=== PATIENT | male | born 1960 | race Caucasian/White ===

== ENCOUNTER 2018-12-16 01:11 | Emergency (ER) | payer OTHER ==
[~2018-12-16] VITALS: Ht 170.2 cm; Wt 97.5 kg
[2018-12-16 01:53] LABS: ABSOLUTE NEUTROPHILS 5.3 thou/uL (1.4-8.2); BASOPHILS 0.8 % (0.0-2.0); EOSINOPHILS 4.8 % (0.0-3.0); HEMATOCRIT 37.4 % (42.0-52.0); HEMOGLOBIN 12.3 gm/dL (14.0-18.0); LYMPHOCYTES 31.6 % (24.0-44.0); MCH 27.6 pg (26.0-34.0); MCHC 32.9 g/dL (28.0-37.0); MCV 83.8 fL (80.0-100.0); MONOCYTES 6.9 % (1.0-8.0); PLATELET COUNT 305 thou/uL (150-400); POLYS 55.9 % (36.0-66.0); RBC 4.47 mil/uL (4.50-6.00); RDW 14.2 % (10.5-14.5); WBC 9.4 thou/uL (4.0-11.0)
[2018-12-16 02:02] LABS: ANION GAP 8 mmol/L (7-16); BUN 15 mg/dL (7-18); CALCIUM 8.7 mg/dL (8.5-10.1); CHLORIDE 105 mmol/L (98-107); CO2 27 mmol/L (21-32); GLUCOSE 83 mg/dL (74-106); SODIUM 140 mmol/L (136-145)
[2018-12-16 02:11] LABS: TROPONIN-I <0.06 ng/mL (<0.06)
[2018-12-16 03:42] VITALS: BP 100/52
--- NOTE | 2018-12-16 11:07 | EKG ---
[place] [address] [facility] [employer] [place] [address] ELECTROCARDIOGRAM REPORT Name: PAYTON GONZALEZ Room #: DEP Dorcas#: [id number] ������������������ Admission: 12/16/18 ������������������ Attend Phys: Discharge: 12/16/18 ������������������ Date of : 56 Report #: [id number] ����������������������������������������������������������������� [id number] THIS REPORT FOR: //name// [facility] ED Test Date: 2018-12-16 Test Time: 01:14:43 Pat Name: PAYTON GONZALEZ Department: Room: Gender: Desktop Engineer: ARACELI : 1960 Requested By: Tex Blankenship Order Number: [id number] MD: Avery Degroot Measurements Intervals [place] Rate: 71 P: 0 WA: 93 QRS: 17 QRSD: 103 T: 34 QT: 387 QTc: 421 Interpretive Statements Sinus rhythm Short WA interval Nonspecific ST segment abnormality No previous ECG available for comparison Electronically Signed On 12-16-2018 11:07:36 CDT by Avery Degroot [email or web address] ��������������������������������������������� <ELECTRONICALLY SIGNED> ���������������������������������������� By: Avery Degroot MD ��������������������������������������������� 12/16/18 1107 0114 0114 Avery Degroot MD /EPI
== END 2018-12-16 03:43 | disposition home or self-care (01) ==
LOC: ER 01:11
PROVIDERS: Emergency Medicine
DX: R07.89 Other chest pain (principal); I10 Essential (primary) hypertension; E78.5 Hyperlipidemia, unspecified